=== PATIENT | female | born 1970 | race Caucasian/White ===

== ENCOUNTER 2017-09-09 16:25 | Emergency (ER) | payer OTHER, BC ==
[~2017-09-09] VITALS: Ht 167.6 cm; Wt 108.9 kg
[~2017-09-09 16:25] MED LIST: ESTR2 PO; PROZAC20 MG PO; SULTRIDS PO
[2017-09-09] MEDS ORDERED: AMLO5 PO (16:51)
[2017-09-09] MEDS ORDERED: HYDCHL25 PO (16:51)
[2017-09-09] MEDS ORDERED: METO25ER (16:52)
[2017-09-09] MEDS ORDERED: CYCL10 PO (18:48)
[2018-06-26] MEDS ORDERED: Prednisone20 MG PO (04:58)
[2018-06-26] MEDS ORDERED: METO25 PO (05:01)
== END 2017-09-09 18:56 | disposition home or self-care (01) ==
LOC: ER 16:25
DX: S20.312A Abrasion of left front wall of thorax, initial encounter (principal); Z88.8 Allergy status to other drugs, medicaments and biological substances; Z79.899 Other long term (current) drug therapy; I10 Essential (primary) hypertension; V43.52XA Car driver injured in collision with other type car in traffic accident, initial encounter
CPT/HCPCS: 71046; 72125; 96374; 99284; J1885

== ENCOUNTER 2018-10-25 15:51 | Emergency (ER) | payer BC ==
[~2018-10-25] VITALS: Ht 167.6 cm; Wt 103.4 kg
[~2018-10-25 15:51] MED LIST changes: +AMLO5 PO; +Amlodipine Bes2.5 MG PO; +CYCL10 PO; +HYDCHL25 PO; +METO25 PO; +METO25ER; +METO25ER PO; +MULTI VITAMIN1 EACH PO; +Multiple Vitam1 EACH PO; +Prednisone20 MG PO
[2018-10-25] MEDS ORDERED: Norco 5-325 Ta1 EACH PO (16:24)
[2018-10-25] MEDS ORDERED: NAPR550 PO (16:24)
[2018-10-25] MEDS ORDERED: CRUTCH4 XX (16:25)
== END 2018-10-25 16:39 | disposition home or self-care (01) ==
LOC: ER 15:51
DX: M25.561 Pain in right knee (principal); Z88.8 Allergy status to other drugs, medicaments and biological substances; Z79.899 Other long term (current) drug therapy; W20.8XXA Other cause of strike by thrown, projected or falling object, initial encounter
CPT/HCPCS: 29505; 73562-RT; 99283-25

== ENCOUNTER 2019-03-25 07:49 | Day surgery (SDC) | payer BC ==
[~2019-03-25] VITALS: Ht 170.2 cm; Wt 113.8 kg
[~2019-03-25 07:49] MED LIST changes: +CRUTCH4 XX; +NAPR550 PO; +Norco 5-325 Ta1 EACH PO
--- NOTE | 2019-03-25 09:52 | NUR ---
03/25/19 0952 Autumn Frey NOTED ABOUT THE PATIENTS ANKLE
== END 2019-03-25 14:05 | disposition home or self-care (01) ==
LOC: ORSCSDS 07:49
PROVIDERS: Orthopaedic Surgery
PROC: 0SBC4ZZ Excision of Right Knee Joint, Percutaneous Endoscopic Approach (ICD-10-PCS; principal; 2019-03-25 09:00)
PROC: 0MRN47Z Replacement of Right Knee Bursa and Ligament with Autologous Tissue Substitute, Percutaneous Endoscopic Approach (ICD-10-PCS; principal; 2019-03-25 09:00)
DX: S83.511A Sprain of anterior cruciate ligament of right knee, initial encounter (principal); S83.241A Other tear of medial meniscus, current injury, right knee, initial encounter; I10 Essential (primary) hypertension; E66.01 Morbid (severe) obesity due to excess calories; Z68.39 Body mass index [BMI] 39.0-39.9, adult; Z79.899 Other long term (current) drug therapy
CPT/HCPCS: C1713; J0171; J0690; J2250; J2704; J3010; J7120

== ENCOUNTER 2019-07-07 09:39 | Day surgery (SDC) | payer BC ==
[~2019-07-07] VITALS: Ht 167.6 cm; Wt 109.6 kg
--- NOTE | 2019-07-07 12:22 | NUR ---
07/07/19 1221 Vanessa Gilman LATE ENTRY: PER DR DEXTER & DR GARAY OK TO PROCEED WITH NURSE SEDATION.
== END 2019-07-07 12:20 | disposition home or self-care (01) ==
LOC: ORSCSDS 09:39
PROVIDERS: Surgery
PROC: 0DJD8ZZ Inspection of Lower Intestinal Tract, Via Natural or Artificial Opening Endoscopic (ICD-10-PCS; principal; 2019-07-07 11:00)
DX: Z12.11 Encounter for screening for malignant neoplasm of colon (principal); I10 Essential (primary) hypertension; F41.9 Anxiety disorder, unspecified; E03.9 Hypothyroidism, unspecified; Z79.899 Other long term (current) drug therapy
CPT/HCPCS: J2704; J7120

== ENCOUNTER 2020-01-12 07:50 | Day surgery (SDC) | payer BC ==
[~2020-01-12] VITALS: Ht 170.2 cm; Wt 114.4 kg
== END 2020-01-12 09:38 | disposition home or self-care (01) ==
LOC: ORSCSDS 07:50
PROVIDERS: Surgery
PROC: 0DJD8ZZ Inspection of Lower Intestinal Tract, Via Natural or Artificial Opening Endoscopic (ICD-10-PCS; principal; 2020-01-12 09:00)
DX: Z12.11 Encounter for screening for malignant neoplasm of colon (principal); I10 Essential (primary) hypertension; F41.8 Other specified anxiety disorders; E03.9 Hypothyroidism, unspecified; Z79.899 Other long term (current) drug therapy
CPT/HCPCS: J2704; J7120

== ENCOUNTER 2022-01-08 05:21 | Emergency (ER) | payer BC ==
[~2022-01-08] VITALS: Ht 170.2 cm; Wt 113.4 kg
[2022-01-08] MEDS ORDERED: ROSUVASTATIN CA10 MG PO (05:37)
[2022-01-08 06:14] LABS: BASOPHILS ABSOLUTE AUTO 0.06 K/mm3 (0.00-0.23); BASOPHILS PERCENT AUTO 1 % (0-2); EOSINOPHILS ABSOLUTE AUTO 0.01 K/mm3 (0.00-0.68); EOSINOPHILS PERCENT AUTO 0 % (0-6); Hematocrit 42.9 % (33.0-51.0); IMMATURE GRAN ABSOLUTE AUTO 0.03 K/mm3 (0.00-0.10); IMMATURE GRAN PERCENT AUTO 0 % (0-1); LYMPHOCYTES PERCENT AUTO 17 % (21-46); MONOCYTES ABSOLUTE AUTO 1.05 K/mm3 (0.16-1.47); MONOCYTES PERCENT AUTO 10 % (4-13); Mean Corpuscular HGB 28.5 pg (26.0-34.0); Mean Corpuscular HGB Conc 32.6 g/dL (31.5-36.5); Mean Corpuscular Volume 87 fL (80-100); Mean Platelet Volume 10.1 fL (9.1-12.4); NEUTROPHILS ABSOLUTE AUTO 7.62 K/mm3 (1.96-9.15); NEUTROPHILS PERCENT AUTO 72 % (41-73); Platelet Count 244 K/mm3 (150-400); RDW Coefficient Variation 13.9 % (11.7-14.2); RDW Standard Deviation 44.9 fL (35.1-46.3); Red Blood Cell Count 4.91 M/mm3 (3.80-5.20); White Blood Cell Count 10.57 K/mm3 (4.00-11.30)
[2022-01-08 06:28] LABS: Albumin, Blood 3.7 g/dL (3.4-5.0); Albumin/Globulin Ratio 0.9 (0.8-1.8); Bilirubin, Direct 0.2 mg/dL (0.0-0.3); Bilirubin, Indirect 0.5 mg/dL (0.1-0.7); Bilirubin, Total 0.7 mg/dL (0.1-1.0); Bun/Creatinine Ratio 10.9 (12.0-20.0); Calcium, Blood 9.3 mg/dL (8.5-10.1); Creatinine, Blood 0.83 mg/dL (0.40-1.00); Globulin, Blood 4.1 g/dL (2.2-4.0); Magnesium, Blood 2.3 mg/dL (1.6-2.4); Potassium, Blood 3.4 mmol/L (3.5-5.5); Total Protein, Blood 7.8 g/dL (6.4-8.2)
[2022-01-08 07:16] LABS: Influenza A, PCR NEGATIVE (NEGATIVE); Influenza B, PCR NEGATIVE (NEGATIVE); Resp Syncytial Virus, PCR NEGATIVE (NEGATIVE)
[2022-01-08 07:36] LABS: SARS-Cov-2 (COVID-19) PCR, MMC POSITIVE (NEGATIVE)
[2022-01-08 09:03] LABS: Source, Urine Clean Catch
[2022-01-08 09:08] LABS: Appearance, Urine Clear (Clear); Bilirubin, Urine Neg (Neg); Blood, Urine 1+ (Neg); Color, Urine Yellow (P-Yellow); Glucose Qualitative, Urine Neg (Neg); Ketones, Urine Neg (Neg); Leukocyte Esterase, Urine Neg (Neg); Nitrite, Urine Neg (Neg); Protein, Urine 1+ (Neg); Urobilinogen, Urine 1+ (Normal)
[2022-01-08 09:17] LABS: Bacteria Few /hpf; Mucus Light (0-Heavy); Squamous Epithelial Cells Few /hpf (Few); White Blood Cells, Urine 0-2 /hpf (0-5)
[2022-01-08] MEDS ORDERED: ONDA4ODT MM (09:42)
== END 2022-01-08 11:03 | disposition home or self-care (01) ==
LOC: ER 05:21
PROVIDERS: Student in an Organized Health Care Education/Training Program
DX: U07.1 COVID-19 (principal); E87.6 Hypokalemia; R11.2 Nausea with vomiting, unspecified; Z88.8 Allergy status to other drugs, medicaments and biological substances; Z79.899 Other long term (current) drug therapy
CPT/HCPCS: 0241U; 36415; 71045; 80048; 80076; 81001; 83690; 83735; 85025; 93005; 93010; 96374; 96375; 99284-25; A9270; J1885; J2405; J7030